=== PATIENT | female | born 1990 | race African-American/Black ===

== ENCOUNTER 2018-07-03 11:06 | Inpatient (IN) ==
--- NOTE | 2018-07-03 11:57 | ED ---
History of Present Illness Primary Care Physician: Dr. Martin Chief Complaint: Pelvic Pressure History of Present Illness: Patient is a 27-year-old female at 35/4 weeks gestation with a Di/Di twin presenting to OB triage from [facility] due to worsening pelvic pressure. Patient reports that last night she began having painful contractions every 30 minutes from 6 PM to 9 PM with pelvic pressure. The contractions returned again at 3 AM today, again occurring every 30 minutes, contractions have now resolved however she still has pelvic pressure with radiation of pain BL to lower back. She also reports increased urinary frequency and foul-smelling urine noted today. Endorses dizziness last night when contractions started, resolved today. Denies loss of fluid or vaginal bleeding. Endorses movement. Denies chest pain, dysuria, chills, nausea , vomiting, headache or vision issues. Patient reports she has had shortness of breath since 7 months, stable. Of note: Patient reports that she came to OB triage 2 weeks ago with complaints of pelvic pressure and was evaluated for labor rule out. At that time she was given steroids x1 and terbutaline shot. She did not receive 2nd dose of steroids because her delivery was scheduled to be done via induction on . She has been getting biweekly testing with BPP. OB U/S on 06/21/18 for growth check BPP 10/10 for both babies, baby A: MVP 7.55cm, Wt 16% and baby B: MVP <3% (IUGR). Weeks Gestation:: 35 Para: 2 : 4 Review of Systems All other systems reviewed negative except as stated in HPI PMFSH - History History Provided By: Patient - Medical / Surgical Hx Neg / Unobtainable Surgical History: No Previous Surgery - Medical History Medical History: Medical History (Last Reviewed 06/26/18 @ 15:44 by Maryan Gray MD, R1 ) Pelvic pressure in Trichomonas vaginalis infection Twin gestation in third trimester - Family History Family History: Family History (Last Updated 07/03/18 @ 11:56 by Stevenson Carver MD, R2) Grandparent Diabetes - Social History I have reviewed the patient's Social History: Yes - Tobacco History Second Hand Smoke Exposure: Yes Tobacco Use In Past 30 Days: Yes Smoking Status: Current every day smoker Tobacco Type: Cigarettes Cigarettes Per Day: 4 - Alcohol History How Often Do You Have a Drink Containing Alcohol: Never - Substance Use History Substance History: Active Abuse (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 drug use) - Travel History Recent Travel in the [place] Within the Last 8 Weeks: No Recent Travel Out of the Country Within the Last 8 Weeks: No Medications and Allergies Allergies Allergy/AdvReac Type Severity Reaction Status Date / Time No Known Allergies Allergy Verified 06/12/18 18:54 Home Medications Medication Instructions Recorded Confirmed Type vit,[id number] 1 tab PO DAILY 06/12/18 07/03/18 History [PNV 29-1] Exam Vital signs: Vital Signs 07/03/18 11:23 07/03/18 11:42 Temperature 97.8 F Pulse Rate 96 H Blood Pressure 130/77 Intake & Output 07/02/18 07/03/18 07/03/18 18:59 06:59 18:59 Weight 86.183 kg Narrative: GENERAL: Well-nourished, well-developed patient. SKIN: Warm and dry. HEAD: Normocephalic and atraumatic. EYES: No scleral icterus. No injection or drainage. ENT: No nasal drainage noted. Mucous membranes pink. Airway patent. NECK: Supple, trachea midline. No JVD. CARDIOVASCULAR: Regular rate and rhythm without murmurs, gallops, or rubs. RESPIRATORY: Breath sounds equal bilaterally. No accessory muscle use. ABDOMEN/GI: Abdomen soft, non-tender, bowel sounds present, no rebound, no guarding Gravid to 35/4 weeks size GENITOURINARY: Cervix: mid position Dilatation: 1cm Effacement:60% Station: -3 Presentation: cephalic Membranes: intact Uterine Contractions: none FHT's baby A: Category: 1 Baseline: 140 Reactive: yes Variability: mod Decels: none FHT's baby B: Category: 1 Baseline: 130 Reactive: yes Variability: mod Decels: none EXTREMITIES: No cyanosis or edema. BACK: Nontender without obvious deformity. No CVA tenderness. NEUROLOGICAL: Awake and alert. Motor and sensory grossly within normal limits. Five out of 5 muscle strength in all muscle groups. Normal speech. Assessment and Plan - Diagnosis (1) 35 weeks gestation of Code(s): Z3A.35 - 35 weeks gestation of Status: Acute Plan: Patient is a 27-year-old female at 35/4 weeks gestation with a Di/Di twin presenting to OB triage from [facility] due to worsening pelvic pressure. IUP at 35/4 weeks gestation 1. oral hydration 2. continue with routine OB care 3. NST reactive, monitoring category 1 for both babies 4. Cervical exam: 1cm/60%/-3 5. OB US today showed BPP 8/10 for both babies, baby B IUGR persist -patient will be observed in OB triage for monitoring and cervical recheck to rule out labor. If monitoring remains normal and no cervical change at 1 hr recheck plan to keep induction of labor for 07/12/18. Update: -On cervical recheck patient made change: 3-4cm dilated, 70%, and -2. No contractions are being picked up on monitor but pt states she started feeling contractions 45mins ago occurring every 5 mins. Due to this change in cervical exam patient will be admitted for active labor. -Will start PEN G for GBS ppx sdw Dr. Knott (2) Twin Code(s): O30.009 - Twin , unspecified number of placenta and unspecified number of amniotic sacs, unspecified trimester Status: Acute Plan: see plan above - Attending Attestation The exam, history, and the medical decision-making described in the above note were completed with the assistance of the resident physician. I reviewed and agree with the findings presented. I attest that I had a [id number] encounter with the patient on the same day, and personally performed and documented my assessment and findings in the medical record. Jaime twins, 35 4/7wks, cervical change, due to early gestation will start on PCN for GBS unknown and status, GBS swab obtained prior to starting ABX. Will continue to monitor, based on changes likely early active labor but will not AROM or start pitocin unless continued cervical change. -Josee Knott MD Discharge Plan - Physicians Team Primary Care Provider: [facility] Attending Provider: Josee Knott - Rxs /Orders / Referrals /Forms Prescriptions: No Action vit,[id number] [PNV 29-1] 29 mg iron- 1 mg Tablet 1 tab PO DAILY Referrals: [facility] [Primary Care Provider] - See Instructions - Discharge Instructions
--- NOTE | 2018-07-03 13:26 | P.HPOB ---
Primary Care Physician: Dr. Martin Chief Complaint: Pelvic Pressure History of Present Illness: Patient is a 27-year-old female at 35/4 weeks gestation with a Di/Di twin presenting to OB triage from [facility] due to worsening pelvic pressure. Patient reports that last night she began having painful contractions every 30 minutes from 6 PM to 9 PM with pelvic pressure. The contractions returned again at 3 AM today, again occurring every 30 minutes, contractions have now resolved however she still has pelvic pressure with radiation of pain BL to lower back. She also reports increased urinary frequency and foul-smelling urine noted today. Endorses dizziness last night when contractions started, resolved today. Denies loss of fluid or vaginal bleeding. Endorses movement. Denies chest pain, dysuria, chills, nausea , vomiting, headache or vision issues. Patient reports she has had shortness of breath since 7 months, stable. Of note: Patient reports that she came to OB triage 2 weeks ago with complaints of pelvic pressure and was evaluated for labor rule out. At that time she was given steroids x1 and terbutaline shot. She did not receive 2nd dose of steroids because her delivery was scheduled to be done via induction on . She has been getting biweekly testing with BPP. OB U/S on 06/21/18 for growth check BPP 10/10 for both babies, baby A: MVP 7.55cm, Wt 16% and baby B: MVP <3% (IUGR). Weeks Gestation:: 35 Para: 2 : 4 Review of Systems All other systems reviewed negative except as stated in HPI PMFSH - History History Provided By: Patient - Medical / Surgical Hx Neg / Unobtainable Surgical History: No Previous Surgery - Medical History Medical History: Medical History (Last Reviewed 06/26/18 @ 15:44 by Maryan Gray MD, R1 ) Pelvic pressure in Trichomonas vaginalis infection Twin gestation in third trimester - Family History Family History: Family History (Last Updated 07/03/18 @ 11:56 by Stevenson Carver MD, R2) Grandparent Diabetes - Social History I have reviewed the patient's Social History: Yes - Tobacco History Second Hand Smoke Exposure: Yes Tobacco Use In Past 30 Days: Yes Smoking Status: Current every day smoker Tobacco Type: Cigarettes Cigarettes Per Day: 4 - Alcohol History How Often Do You Have a Drink Containing Alcohol: Never - Substance Use History Substance History: Active Abuse (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 drug use) - Travel History Recent Travel in the [place] Within the Last 8 Weeks: No Recent Travel Out of the Country Within the Last 8 Weeks: No Medications and Allergies Allergies Allergy/AdvReac Type Severity Reaction Status Date / Time No Known Allergies Allergy Verified 06/12/18 18:54 Home Medications Medication Instructions Recorded Confirmed Type vit,[id number] 1 tab PO DAILY 06/12/18 07/03/18 History [PNV 29-1] Exam Vital signs: Vital Signs 07/03/18 11:23 07/03/18 11:42 Temperature 97.8 F Pulse Rate 96 H Blood Pressure 130/77 Intake & Output 07/02/18 07/03/18 07/03/18 18:59 06:59 18:59 Weight 86.183 kg Narrative: GENERAL: Well-nourished, well-developed patient. SKIN: Warm and dry. HEAD: Normocephalic and atraumatic. EYES: No scleral icterus. No injection or drainage. ENT: No nasal drainage noted. Mucous membranes pink. Airway patent. NECK: Supple, trachea midline. No JVD. CARDIOVASCULAR: Regular rate and rhythm without murmurs, gallops, or rubs. RESPIRATORY: Breath sounds equal bilaterally. No accessory muscle use. ABDOMEN/GI: Abdomen soft, non-tender, bowel sounds present, no rebound, no guarding Gravid to 35/4 weeks size GENITOURINARY: Cervix: mid position Dilatation: 1cm Effacement:60% Station: -3 Presentation: cephalic Membranes: intact Uterine Contractions: none FHT's baby A: Category: 1 Baseline: 140 Reactive: yes Variability: mod Decels: none FHT's baby B: Category: 1 Baseline: 130 Reactive: yes Variability: mod Decels: none EXTREMITIES: No cyanosis or edema. BACK: Nontender without obvious deformity. No CVA tenderness. NEUROLOGICAL: Awake and alert. Motor and sensory grossly within normal limits. Five out of 5 muscle strength in all muscle groups. Normal speech. Assessment and Plan - Diagnosis (1) 35 weeks gestation of Code(s): Z3A.35 - 35 weeks gestation of Status: Acute Plan: Patient is a 27-year-old female at 35/4 weeks gestation with a Di/Di twin presenting to OB triage from [facility] due to worsening pelvic pressure. IUP at 35/4 weeks gestation 1. oral hydration 2. continue with routine OB care 3. NST reactive, monitoring category 1 for both babies 4. Cervical exam: 1cm/60%/-3 5. OB US today showed BPP 8/10 for both babies, baby B IUGR persist -patient will be observed in OB triage for monitoring and cervical recheck to rule out labor. If monitoring remains normal and no cervical change at 1 hr recheck plan to keep induction of labor for 07/12/18. Update: -On cervical recheck patient made change: 3-4cm dilated, 70%, and -2. No contractions are being picked up on monitor but pt states she started feeling contractions 45mins ago occurring every 5 mins. Due to this change in cervical exam patient will be admitted for active labor. - monitoring, category 1 for both babies -Will start PEN G for GBS ppx sdw Dr. Knott (2) Twin Code(s): O30.009 - Twin , unspecified number of placenta and unspecified number of amniotic sacs, unspecified trimester Status: Acute Plan: see plan above
[2018-07-03] MEDS ORDERED: Oxytocin 30 Units/500ml Premix 30 UNITS/500 ML BAG IV.SIG ONE (13:28)
[2018-07-03] MEDS ORDERED: Naloxone Inj 0.4 MG/ML Vial IV.PUSH PRN ×2 (13:28→21:28)
[2018-07-03] MEDS ORDERED: Sodium Chlor 0.9% Inj 500 ML IV.SIG PRN (13:28)
[2018-07-03] MEDS ORDERED: Sod Chloride 0.9% Inj 1,000 ML IV.CONT PRN (13:28)
[2018-07-03] MEDS ORDERED: fentaNYL Citrate Inj 100 MCG/2 ML Ampul IV.PUSH PRN ×2 (13:28)
[2018-07-03] MEDS ORDERED: Citric Acid/Sodium Citrate Liq 30 ML UDC PO SCH (13:30)
--- NOTE | 2018-07-03 14:11 | P.PNADD ---
Addendum to Inpatient Note Reason for Addendum: Additional Documentation Additional information: Dr Martin saw Ms Meza @ 1:45PM, performed a GBS swab to test for colonization. Discussed with Ms Meza that she was being admitted for pre-term labor and that we will start prophylactic antibiotics and will watch for additional cervical changes. Because she is not ruptured and is only having occasional contractions , we will manage expectantly. Case has been discussed with Dr Dover and he is aware of and will follow only with this high risk case. Discussed with pt the possibility that she may be discharged home if there is no more significant cervical change. Pt DW Naomie Knott and Mehul Attestation Attestation: The exam, history, and the medical decision-making described in the above note were completed with the assistance of the resident physician. I reviewed and agree with the findings presented. I attest that I had a [id number] encounter with the patient on the same day, and personally performed and documented my assessment and findings in the medical record. -MD Dr. Stanislaw Mathew aware of patient and agrees with plan
[2018-07-03] MEDS ORDERED: Penicillin G Potassium Inj 5,000,000 UNIT in Sodium Chloride 0.9% Inj 100 ML IV.SIG ONE (14:30)
[2018-07-03 14:37] LABS: Bilirubin,Urine Negative (Negative); Clarity,Urine Clear (Clear); Color,Urine Yellow (Yellw/Straw); Glucose,Urine (UA) Negative (Negative); Leukocyte Esterase,Urine Negative (Negative); Mucus,Urine Few /lpf (Occasional); Nitrite,Urine Negative (Negative); Specific Gravity,Urine 1.021 (1.002-1.035); Squamous Epithelial Cell,Urine 1 /hpf (0-5)
[2018-07-03 14:45] LABS: Urobilinogen,Urine 0.2 mg/dL (Less than 2)
[2018-07-03 15:50] LABS: Baso % (Auto) 0.2 % (0.0-2.0); Eos # (Auto) 0.2 th/mm3 (0.0-0.4); Eos % (Auto) 1.5 % (0.0-4.0); Hematocrit 33.7 % (35.0-46.0); Hemoglobin 11.9 gm/dL (11.6-15.3); Lymph # (Auto) 2.7 th/mm3 (1.0-4.8); Lymph % (Auto) 26.1 % (9.0-44.0); Mean Corpuscular HGB Conc 35.2 % (32.0-36.0); Mean Corpuscular Hemoglobin 28.7 pg (27.0-34.0); Mean Corpuscular Volume 81.6 fL (80.0-100.0); Mean Platelet Volume 9.6 fL (7.0-11.0); Mono % (Auto) 9.4 % (0.0-8.0); Neut # (Auto) 6.4 th/mm3 (1.8-7.7); Neut % (Auto) 62.8 % (16.0-70.0); Platelet Count 179 th/mm3 (150-450); Red Blood Count 4.13 mil/mm3 (4.00-5.30); Red Cell Distribution Width 14.4 % (11.6-17.2); White Blood Count 10.2 th/mm3 (4.0-11.0)
[2018-07-03] MEDS ORDERED: Diphtheria/Tetanus/Pertussis Vaccine Inj 0.5 ML Syringe IM ONE (16:00)
[2018-07-03] MEDS ORDERED: Measles/Mumps/Rubella Vaccine Inj 0.5 ML Vial SQ ONE (16:00)
--- NOTE | 2018-07-03 17:06 | P.OBLABOR ---
Subjective Interval history: 27 YO at 35/4 weeks gestation with Di/Di twin is laboring and has received one dose of IV PCN G. AROM performed at 1645 with blood-tinged fluid noted. An IUPC was also placed. Cervix is 5-6/80/-2. FHT with BL 140 Twin A and 125 Twin B, moderate, reactive, and no decels. Mother is not pino regularly at this point. Objective Vital Signs: Vital Signs - 8 hr 07/03/18 11:23 07/03/18 11:42 Temperature 97.8 F Pulse Rate 96 H Blood Pressure 130/77 Objective: Pelvic Exam: Cervix: mid-position Dilatation: 5-6 Effacement: 80 Station: -2 Presentation: VTX Twin A; transverse Twin B Membranes: AROM 1645 with blood-tinged fluid Uterine Contractions: irregular to absent FHT's: Category: 1 Baseline: Twin A 140 / Twin B 125 Reactive: yes Variability: moderate Decels: absent Weeks Gestation: 35 Patient Started Active Labor: Yes Active Labor Start Date: 07/03/18 Artificial Rupture of Membrane: Yes (blood tinged fluid) Artificial ROM Date: 07/03/18 Artificial ROM Time: 16:45 Assessment and Plan - Diagnosis (1) 35 weeks gestation of Code(s): Z3A.35 - 35 weeks gestation of Status: Acute Plan: Patient is a 27-year-old female at 35/4 weeks gestation with a Di/Di twin presenting to OB triage from [facility] due to worsening pelvic pressure. IUP at 35/4 weeks gestation 1. oral hydration 2. continue with routine OB care 3. NST reactive, monitoring category 1 for both babies 4. Cervical exam: 1cm/60%/-3 5. OB US today showed BPP 8/10 for both babies, baby B IUGR persist -patient will be observed in OB triage for monitoring and cervical recheck to rule out labor. If monitoring remains normal and no cervical change at 1 hr recheck plan to keep induction of labor for 07/12/18. Update: -On cervical recheck patient made change: 3-4cm dilated, 70%, and -2. No contractions are being picked up on monitor but pt states she started feeling contractions 45mins ago occurring every 5 mins. Due to this change in cervical exam patient will be admitted for active labor. -Will start PEN G for GBS ppx Update 1700 hours: -AROM 1645 hours with blood-tinged fluid -Cervix 5-6/80/-2 -FHTs: Cat 1, Baseline Twin A 140 / Twin B 125, reactive, moderate, no decels sdw Dr. Knott (2) Twin Code(s): O30.009 - Twin , unspecified number of placenta and unspecified number of amniotic sacs, unspecified trimester Status: Acute Plan: see plan above - Attending Attestation The exam, history, and the medical decision-making described in the above note were completed with the assistance of the resident physician. I reviewed and agree with the findings presented. I attest that I had a [id number] encounter with the patient on the same day, and personally performed and documented my assessment and findings in the medical record. -Josee Knott MD
[2018-07-03] MEDS ORDERED: fentaNYL 2MCG-Bupiv 0.125% Epi 150 ML EPIDURAL ONE (18:03)
[2018-07-03] MEDS ORDERED: fentaNYL 2MCG-Bupiv 0.125% Epi 150 ML EPIDURAL PRN (18:46)
[2018-07-03] MEDS ORDERED: fentaNYL Citrate Inj 100 MCG/2 ML Ampul EPIDURAL ONE (18:46)
[2018-07-03] MEDS ORDERED: Oxytocin 30 Units/500ml Premix 30 UNITS/500 ML BAG IV.SIG PRN (19:07)
[2018-07-03] MEDS ORDERED: Penicillin G Potassium Inj 2,500,000 UNIT in Sodium Chlor 0.9% Inj 100 ML IV.SIG SCH (20:00)
[2018-07-03] MEDS: Penicillin G Potassium Inj 2,500,000 UNIT in Sodium Chlor 0.9% Inj 100 ML IV.SIG SCH (20:00)
[2018-07-03] MEDS ORDERED: Zolpidem Tartrate 5 MG Tablet PO PRN (21:28)
[2018-07-03] MEDS ORDERED: Acetaminophen 325 MG Tablet PO PRN (21:28)
[2018-07-03] MEDS ORDERED: Benzocaine 20% Top Spray 60 ML Can TOPICAL PRN (21:28)
[2018-07-03] MEDS ORDERED: Bisacodyl 10 MG Supp RECTAL PRN (21:28)
--- NOTE | 2018-07-03 21:52 | P.OBDELI ---
Weeks Gestation: 35 Patient Started Active Labor: Yes Active Labor Start Date: 07/03/18 Medical Induction of Labor: No Artificial Rupture of Membrane: Yes Artificial ROM Date: 07/03/18 Artificial ROM Time: 16:45 Anesthesia: Epidural Episiotomy: none Vaginal Delivery: Normal, Spontaneous Presentation: Occiput anterior Nuchal Cord: None Delayed Cord Clamping (45 sec): Yes Placenta: Spontaneous delivery, Intact Laceration: None Estimated blood loss (mL): 200 : Male, Multiple Male A Delivery Date: 07/03/18 Infant Delivery Time: 21:06 Weight: 1.775 kg score (1 min): 9 score (5 min): 9 Infant Male B Delivery Date: 07/03/18 Infant Delivery Time: 21:14 Weight: 1620 kg score (1 min): 9 score (5 min): 9 Additional Information: Naomie Dover and Hedy supervised. First cord was clamped following delivery of Twin A. Amniotomy performed with clear fluid noted on gestation sac for Twin B at 2110 hours followed by delivery of Twin B and cord clamped before delivery of placenta spontaneously. Oxytocin IV started following Twin B delivery. Suprapubic massage given with firm uterus noted. No lacerations noted. EBL 200 cc. The exam, history, and the medical decision-making described in the above note were completed with the assistance of the resident physician. I reviewed and agree with the findings presented. I attest that I had a [id number] encounter with the patient on the same day, and personally performed and documented my assessment and findings in the medical record. x2, twin gestation, no complications, delivered in the OR, I assisted with procedure. -Josee Knott MD
[2018-07-04] MEDS: Penicillin G Potassium Inj 2,500,000 UNIT in Sodium Chlor 0.9% Inj 100 ML IV.SIG SCH ×5 (00:08→19:32)
[2018-07-04] MEDS: Witch Hazel 50%/Glyderin 12.5% 40 Pad Jar RECTAL PRN (00:15)
[2018-07-04 06:53] LABS: Hepatitis A IgM Antibody Nonreactive (Nonreactive); Hepatitits B Surface Antigen Nonreactive (Nonreactive)
[2018-07-04] MEDS ORDERED: Ketorolac Inj 30 MG/ML (IVP) Vial IV.PUSH PRN ×2 (08:16→16:00)
[2018-07-04] MEDS ORDERED: medroxyPROGESTERone Acetate Inj 150 MG/ML Syringe IM ONE (08:17)
--- NOTE | 2018-07-04 08:20 | P.PNOB ---
Subjective Post day: 1 Interval history: NAEON. Ambulating, voiding, not stooling yet, tolerating PO, in pain this morning, moderate Lochia with small clots. Breast and bottle feeding. Would like depo-provera injection for contraception. A little dizzy with standing and mild nausea. Would like nicotine patch. Denies CP, SOB, V/D, and leg pain. Objective Vital Signs/I&O: Vital Signs 07/03/18 11:23 07/03/18 11:42 07/03/18 17:15 Temperature 97.8 F 97.9 F Pulse Rate 96 H 84 Respiratory Rate 18 Blood Pressure 130/77 135/82 07/03/18 18:25 07/03/18 18:45 07/03/18 19:26 Temperature 97.5 F L Pulse Rate 83 103 H Respiratory Rate Blood Pressure 138/86 140/72 07/03/18 19:29 07/03/18 19:33 07/03/18 20:00 Temperature Pulse Rate 97 H 101 H 97 H Respiratory Rate 18 Blood Pressure 132/70 108/91 H 113/77 07/03/18 20:40 07/03/18 22:10 07/03/18 22:22 Temperature Pulse Rate 96 H 98 H Respiratory Rate 18 18 Blood Pressure 125/65 115/105 H 07/03/18 22:30 07/04/18 00:00 Temperature 97.8 F Pulse Rate 95 H 86 Respiratory Rate 20 Blood Pressure 129/66 141/86 H Intake & Output 07/03/18 07/04/18 07/04/18 18:59 06:59 18:59 Weight 86.183 kg Other: Weight On Admission 86.183 kg Result Diagrams: 07/03/18 14:50 Objective Remarks: GENERAL: Well-nourished, well-developed patient. CARDIOVASCULAR: Regular rate and rhythm without murmurs, gallops, or rubs. RESPIRATORY: Breath sounds equal bilaterally. No accessory muscle use. ABDOMEN/GI: Abdomen soft, non-tender. Fundus: Firm, non-tender at umbilicus. GENITOURINARY: Light to moderate bleeding. EXTREMITIES: No cyanosis or edema, non-tender, without signs of DVT. Medications and IVs: Active Medications Acetaminophen (Tylenol) 650 mg PO Q4H PRN PRN Reason: PAIN SCALE 1 TO 2 Last Admin: 07/04/18 00:17 Dose: 650 mg Al Hydroxide/Mg Hydroxide (Milk Of Magnesia Liq) 30 ml PO Q12H PRN PRN Reason: Mild Constipation Benzocaine (Americaine 20% Top [place]) 1 spray TOPICAL Q4H PRN PRN Reason: For Perineum Discomfort Last Admin: 07/04/18 00:16 Dose: 1 spray Bisacodyl (Dulcolax Supp) 10 mg RECTAL DAILY PRN PRN Reason: SEVERE CONSITIPATION Citric Acid/Sodium Citrate (Sodium Citrate/Citric Acid Liq) 30 ml PO [employer] [facility] Stop: 07/07/18 13:29 Ephedrine Sulfate (Ephedrine/Ns Syringe) 10 mg IV.PUSH UNSCH PRN PRN Reason: SEE LABEL COMMENTS Stop: 07/04/18 18:46 Fentanyl Citrate (Fentanyl Inj) 50 mcg IV.PUSH Q1H PRN PRN Reason: Pain Scale 3 - 5 Fentanyl Citrate (Fentanyl Inj) 100 mcg IV.PUSH Q1H PRN PRN Reason: PAIN SCALE 6 TO 10 Lactated Ringer's (Lr 1000 Ml Inj) 1,000 mls @ 3,000 mls/hr IV.SIG UNSCH PRN PRN Reason: compromise or epidural Lactated Ringer's (Lr 1000 Ml Inj) 1,000 mls @ 125 mls/hr IV.CONT .Q8H [facility] Last Admin: 07/03/18 23:02 Dose: Not Given Sodium Chloride (Ns Inj) 500 mls @ 1,000 mls/hr IV.SIG UNSCH PRN PRN Reason: SEE LABEL COMMENTS Sodium Chloride (Ns Inj) 1,000 mls @ 100 mls/hr IV.CONT .Q10H PRN PRN Reason: SEE LABEL COMMENTS Fentanyl/Bupivacaine/Sodium Chlor (Fentanyl 2 Mcg-Bupiv 0.125% Epi) 150 mls @ 8 mls/hr EPIDURAL PRN PRN PRN Reason: for Labor Pain Oxytocin (Pitocin 30 Units/Ns 500 Ml Premix) 30 units in 500 mls @ 2 mls/hr IV.SIG TITRATE PRN; Protocol PRN Reason: For induction of labor Penicillin G Potassium 2,500, (000 unit/ Sodium Chloride) 100 mls @ 200 mls/hr IV.SIG Q4H [facility] Last Admin: 07/04/18 03:16 Dose: Not Given Lactulose (Lactulose Liq) 30 ml PO DAILY PRN PRN Reason: SEVERE CONSITIPATION Lidocaine HCl (Xylocaine 1% Inj) 0.1 ml I-DERMAL PRN PRN PRN Reason: For IV start Stop: 07/06/18 13:27 Lidocaine HCl (Xylocaine 1% Inj) 10 ml INFILTRATN PRN PRN PRN Reason: For episiotomy repair Stop: 07/05/18 13:27 Medroxyprogesterone Acetate (Depo-Provera Inj) 150 mg IM ONCE ONE Stop: 07/04/18 08:18 Mineral Oil (Muri-Lube Oil) 10 ml TOPICAL PRN PRN PRN Reason: PRN perineal massage Miscellaneous Information (Misc Information) 1 each OTHER UNSCH PRN PRN Reason: SEE LABEL COMMENTS Stop: 07/04/18 18:46 Miscellaneous Information (Misc Information) 1 each OTHER UNSCH PRN PRN Reason: SEE LABEL COMMENTS Stop: 07/04/18 18:46 Naloxone HCl (Narcan Inj) 0.1 mg IV.PUSH Q2M PRN PRN Reason: for opiate reversal Naloxone HCl (Narcan Inj) 0.1 mg IV.PUSH Q2M PRN PRN Reason: for opiate reversal Ondansetron HCl (Zofran Inj) 4 mg IV.PUSH Q6H PRN PRN Reason: NAUSEA OR VOMITING Vit/Calcium/Iron/Folic Ac (Stuartnatal Plus 3) 1 tab PO DAILY [facility] Senna/Docusate Sodium (Margarette-Colace) 1 tab PO BID LES[facility] Sennosides (Senokot) 17.2 mg PO Q12H PRN PRN Reason: Moderate Constipation Sodium Chloride (Ns Flush) 2 ml IV.FLUSH BID LESLY Sodium Chloride (Ns Flush) 2 ml IV.FLUSH PRN PRN PRN Reason: FLUSH AFTER USING IV ACCESS Witch Sabrina/Glycerin (Tucks Pads) 1 applicatio RECTAL QID PRN PRN Reason: HEMORRHOIDS Last Admin: 07/04/18 00:15 Dose: 1 applicatio Zolpidem Tartrate (Ambien) 5 mg PO HS PRN PRN Reason: SLEEP Last Admin: 07/04/18 00:26 Dose: 5 mg Assessment and Plan - Diagnosis (1) 35 weeks gestation of Code(s): Z3A.35 - 35 weeks gestation of Status: Acute Plan: 27 YO is PPD#1 after delivering via with AROM at 35/4 weeks gestation of Di/Di twin , complicated by late PNC and SGA pre-term . 1. Routine care -Tylenol PRN -Toradol 15 mg IV q6h due to increased pain -Witch sabrina and sitz-baths -Nicotine patch at request of mother who is bottle feeding but may attempt breast at home -Pt has requested Depo-provera injection for near-term contraception and will request tubal ligation referral at 6 weeks -Mother advised to observe pelvic rest x6 weeks -Encourage early ambulation/OOB -Check H/H due to dizziness this morning -Some labs still pending Dispo: Twins are in NICU for 2-3 days, pt will discharge 07/[address] Simpson (2) Twin Code(s): O30.009 - Twin , unspecified number of placenta and unspecified number of amniotic sacs, unspecified trimester Status: Acute Plan: see plan above - Attending Attestation S: I examined Ms Meza in the NICU today. Her lochia has decreased since delivery, still about the same as a period, with smaller than golf ball sized clots. she has been urinating frequently and changing her pad and it is not filling up. She has some uterine and back pain now still today. I discussed with her in detail her tobacco and alcohol use and she believes that not smoking is hard for her but not drinking will be ok. After initially being difficult to get details, I was able to elicit that she was probably drinking 1-2/beers a week during her and probably 4/day pre-. she says that she was able to cut back to that amount when she was told that she shouldn't be drinking like she was in . She did mention that she was told at [facility] that she could have one glass of red wine/day and one cup of coffee. O: no tachycardia, BPs overall look good, even looking back to her santy chart , her highest BP was 130 systolically. satting well. A/P: 27 yo PPD #1 s/p of v/v di/di twins. Dr Martin discussed changing motrin to toradol for a day to help control her pain. Will limit toradol days. Ideally avoid opiates but if needed very short term PO percocet for pain is an option. labs reviewed and unconcerning aside from RPR still pending. Contraception: depo shot Tobacco use disorder: nicotine patch Alcohol use in : does not seem concerning in terms of stated amount for withdrawal, but will monitor symptoms anyway. Trichomonas complicating : [place] 06/26 one week post treatment hx of chlamydia complicating : negative this Otherwise continue routine PP care. dispo: Will stay overnight in light of all of the above and 24 hrs for her stay will be between 9 and 10pm phyllis. D/W Dr Martin and reviewed documentation (2) Twin Qualifiers: Multiple gestation type: dichorionic and diamniotic Trimester: third trimester Qualified Code(s): O30.043 - Twin , dichorionic/diamniotic, third trimester
[2018-07-04] MEDS: Senna/Docusate Sodium 8.6/50 MG Tablet PO SCH ×2 (09:44→23:42)
[2018-07-04] MEDS: Prenatal Vit/Ca/Iron/Folic Acid Tablet PO SCH (09:44)
[2018-07-04 17:44] VITALS: RESP 18
[2018-07-04] MEDS ORDERED: Naloxone Inj 0.4 MG/ML Vial IV.PUSH PRN (18:02)
[2018-07-04] MEDS ORDERED: Zolpidem Tartrate 5 MG Tablet PO PRN (20:17)
[2018-07-04] MEDS: oxyCODONE/Acetaminophen 10/325 Tablet PO PRN (21:04)
[2018-07-04 21:05] LABS: Hematocrit 33.8 % (35.0-46.0); Hemoglobin 11.4 gm/dL (11.6-15.3)
[2018-07-05] MEDS: oxyCODONE/Acetaminophen 10/325 Tablet PO PRN ×2 (01:37→07:21)
[2018-07-05 08:17] VITALS: BP 105/69; PULSE 92
[2018-07-05 08:18] VITALS: TEMP 98.6
[2018-07-05] MEDS: Prenatal Vit/Ca/Iron/Folic Acid Tablet PO SCH (08:37)
[2018-07-05] MEDS: Senna/Docusate Sodium 8.6/50 MG Tablet PO SCH (08:37)
[2018-07-05] MEDS: Witch Hazel 50%/Glyderin 12.5% 40 Pad Jar RECTAL PRN (08:37)
--- NOTE | 2018-07-05 08:40 | P.PNOB ---
Subjective Post day: 2 Interval history: NAEON. Ambulating, pain and cramping better controlled on Fifty Six PRN as Percocet causes her face to swell; tolerating PO, voiding and flatus but no BM yet. Lochia is about the same with nickel to quarter size clots. Breast and bottle feeding. Depo-provera for contraception. Still a little lightheaded when standing, but H/H 11.4/33.8 and stable. AFVSS. Denies CP, SOB, N/V/D, and leg pain but does have some ankle and wrist swelling. Stable for DC today. Objective Vital Signs/I&O: Vital Signs 07/04/18 16:48 07/04/18 21:00 07/05/18 08:00 Temperature 97.4 F L 98.1 F 98.6 F Pulse Rate 82 69 92 H Respiratory Rate 18 Blood Pressure 124/79 134/83 105/69 Result Diagrams: 07/04/18 20:58 Objective Remarks: GENERAL: Well-nourished, well-developed patient. CARDIOVASCULAR: Regular rate and rhythm without murmurs, gallops, or rubs. RESPIRATORY: Breath sounds equal bilaterally. No accessory muscle use. ABDOMEN/GI: Abdomen soft, non-tender. Fundus: Firm, non-tender at umbilicus. GENITOURINARY: Light to moderate bleeding. EXTREMITIES: No cyanosis or edema, non-tender, without signs of DVT. Medications and IVs: Active Medications Acetaminophen (Tylenol) 650 mg PO Q4H PRN PRN Reason: PAIN SCALE 1 TO 2 Last Admin: 07/04/18 00:17 Dose: 650 mg Al Hydroxide/Mg Hydroxide (Milk Of Magnesia Liq) 30 ml PO Q12H PRN PRN Reason: Mild Constipation Benzocaine (Americaine 20% [place]) 1 spray TOPICAL Q4H PRN PRN Reason: For Perineum Discomfort Last Admin: 07/04/18 00:16 Dose: 1 spray Bisacodyl (Dulcolax Supp) 10 mg RECTAL DAILY PRN PRN Reason: SEVERE CONSITIPATION Citric Acid/Sodium Citrate (Sodium Citrate/Citric Acid Liq) 30 ml PO [employer] Stop: 07/07/18 13:29 Fentanyl/Bupivacaine/Sodium Chlor (Fentanyl 2 Mcg-Bupiv 0.125% Epi) 150 mls @ 8 mls/hr EPIDURAL PRN PRN PRN Reason: for Labor Pain Oxytocin (Pitocin 30 Units/Ns 500 Ml Premix) 30 units in 500 mls @ 2 mls/hr IV.SIG TITRATE PRN; Protocol PRN Reason: For induction of labor Penicillin G Potassium 2,500, (000 unit/ Sodium Chloride) 100 mls @ 200 mls/hr IV.SIG Q4H [facility] Last Admin: 07/04/18 19:32 Dose: Not Given Lactulose (Lactulose Liq) 30 ml PO DAILY PRN PRN Reason: SEVERE CONSITIPATION Lidocaine HCl (Xylocaine 1% Inj) 0.1 ml I-DERMAL PRN PRN PRN Reason: For IV start Stop: 07/06/18 13:27 Lidocaine HCl (Xylocaine 1% Inj) 10 ml INFILTRATN PRN PRN PRN Reason: For episiotomy repair Stop: 07/05/18 13:27 Mineral Oil (Muri-Lube Oil) 10 ml TOPICAL PRN PRN PRN Reason: PRN perineal massage Naloxone HCl (Narcan Inj) 0.1 mg IV.PUSH Q2M PRN PRN Reason: for opiate reversal Naloxone HCl (Narcan Inj) 0.1 mg IV.PUSH Q2M PRN PRN Reason: for opiate reversal Nicotine (Habitrol 14 Mg Patch.24 Hr) 1 patch T-DERMAL DAILY [facility] Last Admin: 07/04/18 09:45 Dose: 1 patch Ondansetron HCl (Zofran Inj) 4 mg IV.PUSH Q6H PRN PRN Reason: NAUSEA OR VOMITING Oxycodone/Acetaminophen (Percocet 10/325 Mg) 1 tab PO Q6H PRN PRN Reason: PAIN SCALE 6 TO 10 Last Admin: 07/05/18 07:21 Dose: 1 tab Oxycodone/Acetaminophen (Percocet 5/325 Mg) 1 tab PO Q6H PRN PRN Reason: PAIN SCALE 3 TO 5 Vit/Calcium/Iron/Folic Ac (Stuartnatal Plus 3) 1 tab PO DAILY [facility] Last Admin: 07/04/18 09:44 Dose: 1 tab Senna/Docusate Sodium (Margarette-Colace) 1 tab PO BID [facility] Last Admin: 07/04/18 23:42 Dose: Not Given Sennosides (Senokot) 17.2 mg PO Q12H PRN PRN Reason: Moderate Constipation Sodium Chloride (Ns Flush) 2 ml IV.FLUSH BID [facility] Last Admin: 07/04/18 23:42 Dose: Not Given Sodium Chloride (Ns Flush) 2 ml IV.FLUSH PRN PRN PRN Reason: FLUSH AFTER USING IV ACCESS Witch Sabrina/Glycerin (Tucks Pads) 1 applicatio RECTAL QID PRN PRN Reason: HEMORRHOIDS Last Admin: 07/04/18 00:15 Dose: 1 applicatio Zolpidem Tartrate (Ambien) 5 mg PO HS PRN PRN Reason: INSOMNIA Last Admin: 07/04/18 21:04 Dose: 5 mg Assessment and Plan - Diagnosis (1) 35 weeks gestation of Code(s): Z3A.35 - 35 weeks gestation of Status: Acute Plan: 27 YO is PPD#2 after delivering via with AROM at 35/4 weeks gestation of Di/Di twin , complicated by late PNC and SGA pre-term . 1. Routine care -Ibuprofen, Tylenol and Fifty Six PRN for pain -Witch sabrina and sitz-baths -Nicotine patch at request of mother who is bottle feeding but may attempt breast at home -Depo-provera prior to discharge and referral to [facility] for tubal ligation at 6 weeks -Mother advised to observe pelvic rest x6 weeks -Encourage early ambulation/OOB -H/H stable 11.4/33.8 - labs negative -KRYSTIAN hose for ankle swelling Dispo: Twins are in NICU for 2-3 days, pt will discharge 07/[address] Weinberg (2) Twin Code(s): O30.009 - Twin , unspecified number of placenta and unspecified number of amniotic sacs, unspecified trimester Status: Acute Plan: see plan above - Attending Attestation The exam, history, and the medical decision-making described in the above note were completed with the assistance of the resident physician. I reviewed and agree with the findings presented. I attest that I had a [id number] encounter with the patient on the same day, and personally performed and documented my assessment and findings in the medical record. I discussed management plan with the resident. I evaluated the patient independently. She is PPD #2 after delivery of twin infants. At this time, still having cramping, well controlled with Percocet. Lochia slightly more than a menstrual period. Reports having tiny clots, no large clots. Breast and formula feeding. No bowel movement but has flatus. Good appetite present. Ambulating. Getting Depo Provera shot before discharge. Recommended following up with Dr. Martin for post visit ideally at 3 weeks but at least by 6 weeks. (2) Twin Qualifiers: Multiple gestation type: dichorionic and diamniotic Trimester: third trimester Qualified Code(s): O30.043 - Twin , dichorionic/diamniotic, third trimester
[2018-07-05] MEDS ORDERED: Polyethylene Glycol 3350 17 GM Packet PO ONE (11:30)
[2018-07-05] MEDS ORDERED: medroxyPROGESTERone Acetate Inj 150 MG/ML Syringe IM ONE (14:00)
== END 2018-07-05 14:26 | disposition home or self-care (01) ==
LOC: HOBED 11:06 → H2E 13:40 → H1EA 23:46
PROVIDERS: ADMIT Family Medicine; ATTEND Family Medicine